=== PATIENT | male | born 1980 | race Caucasian/White ===

== ENCOUNTER 2017-04-01 23:01 | Emergency (ER) | payer OTHER ==
[~2017-04-01] VITALS: Ht 167.6 cm; Wt 81.2 kg
[2017-04-02] MEDS ORDERED: ZYRTEC10 MG PO (02:13)
[2017-04-02] MEDS ORDERED: MEDROLPACK PO (02:13)
== END 2017-04-02 02:28 | disposition home or self-care (01) ==
LOC: ER 23:01
DX: R60.0 Localized edema (principal); T39.315A Adverse effect of propionic acid derivatives, initial encounter; Y92.89 Other specified places as the place of occurrence of the external cause

== ENCOUNTER 2019-01-24 03:09 | Emergency (ER) | payer OTHER ==
[~2019-01-24] VITALS: Ht 167.6 cm; Wt 79.8 kg
[~2019-01-24 03:09] MED LIST: MEDROLPACK PO; ZYRTEC10 MG PO
[2019-01-24] MEDS ORDERED: BENADRYL25 MG PO (05:50)
[2019-01-24] MEDS ORDERED: MEDROL8 MG PO (05:50)
[2019-01-24] MEDS ORDERED: PEPCID40 MG PO (05:50)
== END 2019-01-24 06:01 | disposition home or self-care (01) ==
LOC: ER 03:09
DX: L27.2 Dermatitis due to ingested food (principal); L29.8 Other pruritus; T78.1XXA Other adverse food reactions, not elsewhere classified, initial encounter; X58.XXXA Exposure to other specified factors, initial encounter